=== PATIENT | female | born 1995 | race Caucasian/White ===

== ENCOUNTER 2020-05-11 18:01 | Emergency (ER) | payer BC, MEDICAID, SELFPAY ==
[2020-05-11 18:09] VITALS: BP 122/61; PULSE 88; RESP 14; TEMP 36.8; O2SAT 100
--- NOTE | 2020-05-11 18:13 | ED.FEMALEGU ---
HPI - Female Genitourinary General Chief complaint: Urogenital-Female Stated complaint: std tests and mild fever Time Seen by Provider: 05/11/20 18:13 Source: patient History of Present Illness HPI Narrative: Patient presents with vaginal discharge and itching. Patient states there is no odor to her vaginal discharge. Patient denies any abdominal pain no pelvic pain no back pain. Patient states she recently learned that her had recently participated in unprotected sex with another partner. Patient states her symptoms appear as if they did when she had gonorrhea 4 years ago. MD elicited complaint: dysuria, UTI and possible STD Related Data Allergies Allergy/AdvReac Type Severity Reaction Status Date / Time No Known Allergies Allergy Verified 05/11/20 18:19 Review of Systems Review of Systems: Narrative: CONSTITUTIONAL: Denies fever, chills, or sweats. EYES: Denies visual changes, redness, or discharge. ENT: Denies rhinorrhea, congestion, sore throat, or otalgia. CARDIOVASCULAR: Denies chest pain, palpitations, or edema. RESPIRATORY: Denies cough or dyspnea. GASTROINTESTINAL: Denies abdominal pain, nausea, vomiting, or diarrhea. GENITOURINARY: Denies dysuria or hematuria. SKIN: Denies rash or itching. MUSCULOSKELETAL: Denies back pain, joint pain, or myalgia. NEUROLOGIC: Denies headache, numbness, or weakness. PSYCHIATRIC: Denies anxiety or depression. PMFSH Comments At time of signature, agree with nursing past medical, surgical, social and family history. There is no relevant family history pertinent to the presenting complaint Exam Narrative: Exam Narrative: GENERAL: Well-appearing, well-nourished, and in no acute distress. HEAD: Normocephalic, atraumatic. EYES: PERRLA and EOMI. ENT: Nares clear, no rhinorrhea or epistaxis. Mucous membranes moist. NECK: Supple. CHEST: Clear to auscultation. No respiratory distress. HEART: Regular rate and rhythm. No murmur heard. Normal peripheral pulses. ABDOMEN: Soft, nontender, nondistended, normal active bowel sounds. patient politely declined pelvic exam EXTREMITIES: Normal range of motion. No edema. SKIN: Warm, dry, no rash. NEURO: No focal deficits. Alert and oriented x3. [place] Coma Scale Eye Opening: Spontaneous 4 [place] Coma Scale Motor: Obeys Commands 6 [place] Coma Scale Verbal: Oriented 5 [place] Coma Scale Total 15 Course Vital Signs Vital signs: Vital Signs Temperature 36.8 C 05/11/20 18:09 Pulse Rate 88 05/11/20 18:09 Respiratory Rate 14 05/11/20 18:09 Blood Pressure 122/61 05/11/20 18:09 Pulse Oximetry 100 05/11/20 18:09 Temperature 36.8 C 05/11/20 18:09 Pulse Rate 88 05/11/20 18:09 Respiratory Rate 14 05/11/20 18:09 Blood Pressure 122/61 05/11/20 18:09 Pulse Oximetry 100 05/11/20 18:09 MDM - Female Genitourinary Differential Diagnosis Differential diagnosis: Likely urinary tract infection, bacterial vaginosis, trichomoniasis, cervicitis, ovarian cyst and vaginitis Lab Data Labs: Urine Glucose Negative Reference Range: Negative Urine Bilirubin Negative Reference Range: Negative Urine Ketone Negative Reference Range: Negative Urine Specific [place] 1.030 Reference Range:1.001-1.035 Urine Blood Negative Reference Range: Negative * * Urine pH 5.5 Reference Range: 5.0-9.0 Urine Protein Negative Reference Range: Negative Urine Urobilinogen 0.2 Reference Range: 0.2-1.0 Urine Nitrate Negative Reference Range: Negative Urine Leukocyte 1+ Reference Range: Negative Urine Color Yellow Reference Range: Yellow Urine Characteristics Clear Critical Care Time
[2020-05-11] MEDS: cefTRIAXone 250 MG VIAL IM (18:48)
[2020-05-11] MEDS: AZITHROMYCIN 250 MG TABLET 1000 MG PO (18:51)
[2020-05-11] MEDS: LIDOCAINE HCL 1% LOCAL INJ 10 ML VIAL INFILTRATE (18:53)
--- NOTE | 2020-05-11 18:55 | PC.NURSE ---
0.9 ML OF LIDOCAINE GIVEN.1 %
== END 2020-05-11 19:13 | disposition home or self-care (01) ==
PROVIDERS: Emergency Provider Nurse Practitioner Family; PCP Internal Medicine
DX: Z20.2 Contact with and (suspected) exposure to infections with a predominantly sexual mode of transmission (principal)
CPT/HCPCS: 81003; 87086; 87491; 87591; 87661; 96372; 99214; A9270; G0463; J0696

== ENCOUNTER 2022-03-15 17:59 | Emergency (ER) | payer BC, SELFPAY ==
[2022-03-15 18:00] VITALS: BP 107/70; PULSE 88; RESP 18; TEMP 37.1; O2SAT 100
--- NOTE | 2022-03-15 18:19 | ED.URI ---
HPI - URI/Sore Throat General Chief Complaint: Upper Respiratory Infection Stated Complaint: Sore Throat/Ear Pain Time Seen by Provider: 03/15/22 18:05 Source: patient and RN notes reviewed History of Present Illness HPI Narrative: Patient is a 26-year-old female who presents the urgent care with complaints of sore throat and right ear pain. Patient states she woke up with the symptoms today and has been taking Tylenol and Excedrin. Patient states that her main concern is strep throat considering she has 6 children. Denies any known exposures to illness. Denies any fever, nausea or vomiting. No other acute complaints. No acute distress noted. Patient aware of the plan of care. Some parts of this dictation were generated by voice recognition software and may contain typographical and/or grammatical inaccuracies. Related Data Home Medications Medication Instructions Recorded Confirmed No Home Medications 03/15/22 03/15/22 Allergies Allergy/AdvReac Type Severity Reaction Status Date / Time No Known Allergies Allergy Verified 03/15/22 18:15 Review of Systems Review of Systems: CONSTITUTIONAL: Denies fever, chills, or sweats. EYES: Denies visual changes, redness, or discharge. ENT: Denies rhinorrhea, congestion. Reports of sore throat and right ear pain CARDIOVASCULAR: Denies chest pain, palpitations, or edema. RESPIRATORY: Denies cough or dyspnea. GASTROINTESTINAL: Denies abdominal pain, nausea, vomiting, or diarrhea. GENITOURINARY: Denies dysuria or hematuria. SKIN: Denies rash or itching. MUSCULOSKELETAL: Denies back pain, joint pain, or myalgia. NEUROLOGIC: Denies headache, numbness, or weakness. All other systems reviewed are negative, except as documented in HPI. PMFSH Comments At the time of my signature, I reviewed and agree with the nursing past medical, surgical, social, and family history. There is no relevant family history pertinent to the patient complaint. Exam Narrative: GENERAL: This is a well-nourished, well-developed patient, in no apparent distress. HEAD: normocephalic, atraumatic. EYES: PERRL. Sclera clear/white. Vision is grossly intact. EARS: External ears normal, auditory canals clear and without drainage, mild bilateral effusions. TMs normal without perforation. Hearing grossly intact. NOSE: External nose normal with no obvious nasal discharge, nares without redness, no rhinorrhea. THROAT: Mucous membranes moist, posterior pharynx clear. Moderate postnasal drainage NECK: Neck supple, non-tender without lymphadenopathy CARDIOVASCULAR: Regular rate and rhythm without murmurs, gallops, or rubs. RESPIRATORY: Clear to auscultation. Breath sounds equal bilaterally. No wheezes, rales, or rhonchi. SKIN: warm, intact with no suspicious lesions or rash, good texture and turgor. NEURO: awake, alert, and oriented to person, place and time. There were no obvious focal neurologic abnormalities. EXTREMITIES: No clubbing, cyanosis, or edema. Course Course Level of Care: Express Care Visit Vital Signs Vital signs: Vital Signs Temperature 98.8 F 03/15/22 18:00 Pulse Rate 88 03/15/22 18:00 Respiratory Rate 18 03/15/22 18:00 Blood Pressure 107/70 03/15/22 18:00 Pulse Oximetry 100 03/15/22 18:00 Oxygen Delivery Room Air 03/15/22 18:00 Temperature 98.8 F 03/15/22 18:00 Pulse Rate 88 03/15/22 18:00 Respiratory Rate 18 03/15/22 18:00 Blood Pressure 107/70 03/15/22 18:00 Pulse Oximetry 100 03/15/22 18:00 Oxygen Delivery Room Air 03/15/22 18:00 Reviewed MDM - URI/Sore Throat MDM Narrative Medical decision making narrative: Advised the patient take a daily antihistamine such as Claritin or Zyrtec with Benadryl prior to bedtime. Use Flonase nasal spray prior to bedtime. Use a humidifier at night and do not sleep with a fan or the windows open. We will culture the strep and call you if medication is necessary, based on culture results. Use Tylenol/ibuprofe
== END 2022-03-15 18:30 | disposition home or self-care (01) ==
PROVIDERS: Emergency Provider Nurse Practitioner Family; PCP Internal Medicine
DX: J02.9 Acute pharyngitis, unspecified (principal)
CPT/HCPCS: 87081; 99212; G0463